=== PATIENT | male | born 1970 | race Caucasian/White ===

== ENCOUNTER 2018-06-04 08:54 | Emergency (ER) | payer BC, SELFPAY ==
--- NOTE | 2018-06-04 09:41 | RAD ---
CHEST ONE VIEW: History: Chest pain. Comparison: None. FINDINGS: Lungs are clear of pneumothorax or effusion. Cardiac silhouette and mediastinal contours are within n ormal limits. IMPRESSION: No acute intrathoracic abnormality. POS: H
[2018-06-04 09:44] LABS: Hemoglobin 15.2 g/dL (14.0-18.0); Mean Corpuscular HGB CONC 34.4 g/dL (32.0-36.0); Mean Corpuscular Hemoglobin 28.6 pg (27.0-31.0); Mean Corpuscular Volume 83.1 fL (78.0-98.0); Mean Platelet Volume 7.5 fL (7.4-10.4); Platelet Count 192 thou/uL (130-400); Red Blood Cell (RBC) Count 5.34 mill/uL (4.70-6.10); White Blood Cell (WBC) Count 5.2 thou/uL (4.8-10.8)
[2018-06-04 09:45] LABS: MDiff Complete? YES; Manual Diff?? YES
[2018-06-04 09:56] LABS: AST (SGOT) 11 U/L (5-34); Albumin 3.3 g/dL (3.5-5.0); Anion Gap 18 mmol/L (10-20); BUN (Urea Nitrogen) 9 mg/dL (8.9-20.6); Calc. Creatinine Clearance 0 mL/min (70-130); Calcium 8.5 mg/dL (7.8-10.44); Carbon Dioxide 20 mmol/L (22-29); Chloride 102 mmol/L (98-107); Estimated GFR-MDRD 90; Glucose 91 mg/dL (70-105); Lipase 12 U/L (8-78); Potassium 3.9 mmol/L (3.5-5.1); Protein, Total 6.3 g/dL (6.0-8.3); Sodium 136 mmol/L (136-145)
[2018-06-04 09:58] LABS: Anisocytosis SLIGHT = 6-15 cells (100X) (0-5/hpf); Band 2 % (5-11); Eosinophils 2 % (0-10); Lymphocytes 25 % (21-51); Monocytes 12 % (0-10); Neutrophil 61 % (42-75); PLT Morphology Comment Appears Adequate
[2018-06-04 10:00] LABS: CKMB 0.9 ng/mL (0-6.6); Troponin I Less than 0.010 ng/mL (< 0.028)
[2018-06-04 10:01] LABS: ALT (SGPT) 10 U/L (8-55); Bilirubin, Total 0.8 mg/dL (0.2-1.2)
[2018-06-05 12:41] LABS: Alkaline Phosphatase 76 U/L (40-150)
== END 2018-06-04 10:18 | disposition home or self-care (01) ==
LOC: MADERS 08:54
DX: K52.9 Noninfective gastroenteritis and colitis, unspecified (principal); F17.220 Nicotine dependence, chewing tobacco, uncomplicated
CPT/HCPCS: 71045; 80053; 82553; 83690; 84484; 85025; 93005; 94760

== ENCOUNTER 2018-09-16 11:30 | Emergency (ER) | payer BC ==
[2018-09-16] MEDS ORDERED: Ketorolac Tromethamine 30 MG/ML VIAL ONE (12:03)
[2018-09-16] MEDS ORDERED: Ondansetron PF 4 MG/2 ML Vial ONE (12:03)
[2018-09-16 12:12] LABS: Bilirubin Small (Negative); Blood, Urine Large (Negative); Clarity Slightly Cloudy (Clear); Glucose, Urine (Dipstick) Negative (Negative); Leukocyte Negative (Negative); Nitrite Negative (Negative); Protein, Urine (Dipstick) 100 mg/dL (Neg-Trace); Urobilinogen 0.2 mg/dL (0.2-1.0); pH, Urine 5.5 (5.0-9.0)
[2018-09-16 12:15] LABS: Specific Gravity, Urine 1.021 (1.002-1.036)
[2018-09-16 12:18] LABS: Bacteria/HPF 4+ HPF (None Seen); RBC/HPF GREATER THAN 50-TNTC HPF (0-3); Squamous Epithelial 0-3 HPF (0-3)
--- NOTE | 2018-09-16 13:59 | CT ---
CT ABDOMEN NONCONTRAST CT PELVIS NONCONTRAST: (urolithiasis protocol) DATE: 09/16/18 HISTORY: 47-year-old male with generalized abdominal pain. COMPARISON: None. TECHNIQUE: IV injection of iodinated contrast media: none Oral contrast media: none FINDINGS: Other than for urolithiasis, the lack of IV and oral contrast limits the evaluation. There is an approximately 1.5 cm low attenuation focal lesion in hepatic segment 7 of the right lobe of the liver, too small to definitively characterize, perhaps a cyst. There is mild dilation of the r ight renal collecting system. There is a 0.3 x 0.2 x 0.2 cm calculus in the right mid-distal ureter a t the mid sacral level. Urinary bladder is empty. No colonic diverticulitis. No small bowel dilation. Normal retrocecal appendix. No calculus within the kidneys. Within the limitations of a noncontrast scan, no abnormality identified involving abdominal aorta, adrenals, pancreas, left kidney, or spleen . No ascites or pneumoperitoneum. Lung bases are grossly clear. IMPRESSION: Positive for mild right-sided obstructive uropathy by a 3 mm calculus in the right mid-distal ureter, causing mild right hydronephrosis. SAMMY Klein POS: [facility]
== END 2018-09-16 13:10 | disposition home or self-care (01) ==
LOC: MADERS 11:30
DX: N13.2 Hydronephrosis with renal and ureteral calculous obstruction (principal); F17.220 Nicotine dependence, chewing tobacco, uncomplicated
CPT/HCPCS: 74176; 81003; 81015; 96374; 96375; J1885; J2405